=== PATIENT | male | born 1980 ===

== ENCOUNTER 2017-11-30 07:50 | Day surgery (SDC) | payer OTHER ==
[~2017-11-30] VITALS: Ht 182.9 cm; Wt 86.6 kg
== END 2017-11-30 15:25 | disposition home or self-care (01) ==
LOC: ORSCMMR 07:50 → ORD 09:30 → ORSCMMR 15:25
PROVIDERS: Surgery
PROC: 0YU50JZ Supplement Right Inguinal Region with Synthetic Substitute, Open Approach (ICD-10-PCS; principal; 2017-11-30 09:30)
DX: K40.90 Unilateral inguinal hernia, without obstruction or gangrene, not specified as recurrent (principal)
CPT/HCPCS: 88302; C1781; J1100; J1885; J2250; J2405; J3010; J7120